=== PATIENT | female | born 1935 | race Two or more races ===

== ENCOUNTER 2022-05-11 00:29 | Emergency (ER) | payer OTHER ==
[~2022-05-11] VITALS: Ht 152.4 cm; Wt 55.8 kg
[2022-05-11] MEDS ORDERED: ONGLYZA5 MG PO (00:46)
[2022-05-11] MEDS ORDERED: LEVOXYL50 MCG PO (00:46)
[2022-05-11] MEDS ORDERED: CRESTOR40 MG PO (00:46)
[2022-05-11] MEDS ORDERED: MOLNUPIRAVIR (200 MG PO (03:03)
== END 2022-05-11 03:11 | disposition home or self-care (01) ==
LOC: ER 00:29
DX: U07.1 COVID-19 (principal); E11.9 Type 2 diabetes mellitus without complications; E03.9 Hypothyroidism, unspecified